=== PATIENT | female | born 1975 | race Caucasian/White ===

== ENCOUNTER → 2020-05-17 13:24 | Outpatient (CLI) | payer OTHER, SELFPAY ==
[2020-05-09 14:47] VITALS: BMI 42.3
--- NOTE | 2020-05-17 13:25 | US_ITS ---
STUDY: THYROID ULTRASOUND REASON FOR EXAM: Female, 45 years old. NODULE, HX OF LYMPHOMA TECHNIQUE: Ultrasound evaluation of the thyroid was performed with real-time and static nunn-scale imaging. COMPARISON: None. FINDINGS: RIGHT LOBE: The right lobe of the thyroid gland measures 3.7 x 1.8 x 1.7 cm. There is a homogeneous echotexture. Multiple simple cysts are noted in the right thyroid lobe largest measures 2.3 x 1.6 x 1.1 cm LEFT LOBE: The left lobe of the thyroid gland measures 4.3 x 1.9 x 1.7 cm. There is a heterogeneous echotexture. Scattered cysts noted in the left thyroid lobe largest measures 4.8 x 3.5 x 3.2 cm ISTHMUS: The isthmus measures 4 mm. The regional lymph nodes are normal. US/Thyroid IMPRESSION: Normal size thyroid gland with scattered cysts in both thyroid lobes. Largest on the right measures 2.3 cm in greatest dimension, largest on the left 4.8 cm. No prior studies are available for comparison, a six-month follow-up is recommended to assure stability Nonspecific heterogeneity in the left thyroid lobe No suspicious noncalcified solid mass lesion. Electronically Signed: Douglas Bolaños MD at 14:20 EDT , Service support ,
== END ==
PROVIDERS: PCP Family Medicine; Referring Provider Internal Medicine Hematology & Oncology; Visit Provider Internal Medicine Hematology & Oncology
DX: C82.00 Follicular lymphoma grade I, unspecified site (principal)
CPT/HCPCS: 76536